=== PATIENT | female | born 1955 | race African-American/Black ===

== ENCOUNTER 2017-07-09 18:18 | Emergency (ER) | payer BC ==
[~2017-07-09] VITALS: Ht 165.1 cm; Wt 75.6 kg
[2017-07-09 19:09] LABS: HEMOGLOBIN 15.5 G/DL (11.9-15.5); MCH 27.6 PG (29.0-34.0); MCV 83.8 FL (83-99); PLATELET COUNT 367 K/uL (156-360); RBC DIS.WIDTH-CV 14.9 % (11.8-14.6); RBC DIS.WIDTH-SD 45.1 % (39-53); RED BLOOD COUNT 5.61 M/uL (3.80-5.20)
[2017-07-09 19:28] LABS: ALBUMIN 4.2 g/dL (3.2-4.8); CHLORIDE 102 mEq/L (99-109); POTASSIUM 3.2 mEq/L (3.7-5.4); SODIUM 139 mEq/L (136-147)
[2017-07-09 19:31] LABS: GLUCOSE 122 mg/dL (70-99); TOTAL PROTEIN 7.7 g/dL (6.4-8.3)
[2017-07-09 19:33] LABS: TOTAL BILIRUBIN 0.8 mg/dL (0.0-1.0)
[2017-07-09 19:34] LABS: ALKALINE PHOSPHATASE 95 IU/L (3-129); CREATININE 1.1 mg/dL (0.6-1.3)
[2017-07-09 19:35] LABS: UREA NITROGEN (BUN) 13 mg/dL (9-23)
[2017-07-09 19:36] LABS: AST (GOT) 22 IU/L (2-34); GFR ESTIMATE (CALCULATED) 53 mL/min/
[2017-07-09 19:37] LABS: ALT (GPT) 19 IU/L (3-49)
[2017-07-09 19:38] LABS: LIPASE 26 U/L (1.0-51.0)
[2017-07-09 20:47] LABS: APPEARANCE CLEAR ((CLEAR)); BILIRUBIN NEGATIVE; BLOOD MODERATE; COLOR YELLOW ((YELLOW)); GLUCOSE (STRIP) NEGATIVE; KETONES NEGATIVE; LEUKOCYTES NEGATIVE; NITRITE NEGATIVE; PROTEIN (STRIP) NEGATIVE; SPECIFIC GRAVITY 1.019 (1.000-1.030); UROBILINOGEN 0.2 MG/DL (0.2-1.0)
[2017-07-09 20:55] LABS: BACTERIA NONE SEEN /HPF; EPITHELIAL CELLS NONE SEEN /HPF; MUCUS TRACE /LPF; RED BLOOD CELLS TNTC /HPF (0-5); UCUL ADDED? YES; WHITE BLOOD CELLS 0-5 /HPF (0-5)
[2017-07-09] MEDS ORDERED: BENTYL20 MG PO (22:45)
[2017-07-09] MEDS ORDERED: ZOFRAN ODT8 MG PO (22:45)
[2017-07-09 23:02] VITALS: BP 131/74
== END 2017-07-09 23:04 | disposition home or self-care (01) ==
LOC: EXP 18:18 → EME 18:18 → EXP 23:04
DX: R11.2 Nausea with vomiting, unspecified (principal); R10.9 Unspecified abdominal pain; E87.6 Hypokalemia; R31.9 Hematuria, unspecified; I10 Essential (primary) hypertension; J45.909 Unspecified asthma, uncomplicated; Z88.0 Allergy status to penicillin; Z88.2 Allergy status to sulfonamides; Z88.5 Allergy status to narcotic agent; Z88.6 Allergy status to analgesic agent; Z88.1 Allergy status to other antibiotic agents
CPT/HCPCS: 80053; 81003; 83690; 85027; 87086; 93005; 99281; 99284; J0500